=== PATIENT | female | born 1955 | race Caucasian/White ===

== ENCOUNTER 2017-03-13 09:02 | Day surgery (SDC) | payer OTHER ==
[2017-03-13] MEDS ORDERED: LACTATED RINGERS 1,000 ML IV ONE (09:27)
[2017-03-13] MEDS ORDERED: MIDAZOLAM 2 MG/2 ML VIAL IVP ONE (10:56)
[2017-03-13] MEDS ORDERED: fentaNYL 100 MCG/2 ML VIAL IVP ONE (10:56)
[2017-03-13 12:21] VITALS: BP 99/69
== END 2017-03-13 09:03 | disposition home or self-care (01) ==
LOC: SDS 09:02
PROVIDERS: ATTEND Surgery
PROC: 0DJD8ZZ Inspection of Lower Intestinal Tract, Via Natural or Artificial Opening Endoscopic (ICD-10-PCS; principal; 2017-03-13 10:15)
DX: Z12.11 Encounter for screening for malignant neoplasm of colon (principal); Z88.0 Allergy status to penicillin; Z98.1 Arthrodesis status; Z83.3 Family history of diabetes mellitus; Z80.3 Family history of malignant neoplasm of breast; Z88.5 Allergy status to narcotic agent
CPT/HCPCS: 45378; J7120

== ENCOUNTER 2017-05-21 07:12 | Outpatient (CLI) | payer OTHER ==
--- NOTE | 2017-05-23 13:03 | Mammography Report ---
DIGITAL SCREENING MAMMOGRAM: 05/21/2017 CLINICAL INDICATION: A 61-year-old with history of late childbearing, family history of breast cance r for screening. COMPARISON: 04/2016, 03/2015, 02/2014, 09/2011, 01/2010 TECHNIQUE: Routine CC and MLO projections were obtained of the breasts as well as bilateral laterall y exaggerated craniocaudal views. FINDINGS: Scattered fibroglandular tissue is present within the breasts. There are no dominant pako s, suspicious microcalcifications, or secondary signs of malignancy. In comparison to the previous st udies, there are no significant changes. ASSESSMENT: NO MAMMOGRAPHIC EVIDENCE OF MALIGNANCY. NO SIGNIFICANT INTERVAL CHANGES. RECOMMENDATION: Screening mammography is recommended annually. BIRADS category 1 - negative. STANDARD QUALIFYING STATEMENTS 1. This examination was reviewed with the aid of Computed-Aided Detection (CAD). 2. A negative or benign imaging report should not delay biopsy if clinically suspicious findings are present. Consider surgical consultation if warranted. More than 5% of cancers are not identified by i maging. 3. Dense breasts may obscure an underlying neoplasm. JOB #: [id number] EXT JOB #:[id number]
== END 2017-05-21 07:13 | disposition home or self-care (01) ==
LOC: DI 07:12
PROVIDERS: ATTEND Obstetrics & Gynecology
DX: Z12.31 Encounter for screening mammogram for malignant neoplasm of breast (principal); Z80.3 Family history of malignant neoplasm of breast
CPT/HCPCS: 77067

== ENCOUNTER 2018-02-13 08:00 | Outpatient (CLI) | payer BC, OTHER ==
[2018-02-13 18:56] LABS: BASOPHILS % (AUTO) 0.7 %; EOSINOPHILS # (AUTO) 0.2 10^3/uL (0.0-0.7); EOSINOPHILS % (AUTO) 2.3 %; HGB - HEMOGLOBIN 12.6 g/dL (12.0-16.0); LYMPHOCYTES # (AUTO) 1.3 10^3/uL (1.5-3.5); LYMPHOCYTES % (AUTO) 19.3 %; MEAN CORPUSCULAR HEMOGLOBIN 29.8 pg (27.0-31.0); MEAN CORPUSCULAR HGB CONC 32.6 g/dL (32.0-36.0); MEAN CORPUSCULAR VOLUME 91.3 fL (81.0-99.0); MEAN PLATELET VOLUME 9.2 fL (7.9-10.8); MONOCYTES # (AUTO) 0.6 10^3/uL (0.0-1.0); MONOCYTES % (AUTO) 9.2 %; NEUTROPHILS # (AUTO) 4.5 10^3/uL (1.5-6.6); NEUTROPHILS % (AUTO) 68.5 %; PLT - PLATELET COUNT 311 10^3/uL (130-450); RED BLOOD COUNT 4.24 10^6/uL (4.20-5.40); RED CELL DISTRIBUTION WIDTH 13.2 % (12.0-15.0); WHITE BLOOD COUNT 6.6 x10^3/uL (4.8-10.8)
[2018-02-13 19:08] LABS: ALBUMIN 3.1 g/dL (3.2-5.5); ALBUMIN/GLOBULIN RATIO 0.8 (1.0-2.2); ALKALINE PHOSPHATASE 66 IU/L (42-121); ALT ALANINE AMINOTRANSFERASE 14 IU/L (10-60); AST ASPARTATE AMINOTRANSFERASE 20 IU/L (10-42); BILIRUBIN,TOTAL 0.6 mg/dL (0.2-1.0); BUN - BLOOD UREA NITROGEN 13 mg/dL (6-20); CALCIUM 9.3 mg/dL (8.5-10.3); CARBON DIOXIDE - CO2 27 mmol/L (21-32); CHLORIDE 102 mmol/L (101-111); CHOL/HDL RATIO 2.4 (<4.4); CHOLESTEROL 147 mg/dL; CREATININE 0.4 mg/dL (0.4-1.0); GFR - MDRD 163 (>89); GLUCOSE 89 mg/dL (70-100); HDL CHOLESTEROL 61 mg/dL; LDL CHOLESTEROL,CALCULATED 68 mg/dL; LDL/HDL RATIO 1.1 (<4.4); SODIUM 137 mmol/L (135-145); TOTAL PROTEIN 7.1 g/dL (6.7-8.2); VLDL CHOLESTEROL 18 mg/dL
== END 2018-02-13 08:01 | disposition home or self-care (01) ==
LOC: LAB.WCP 08:00
PROVIDERS: ATTEND Family Medicine
DX: Z00.00 Encounter for general adult medical examination without abnormal findings (principal)
CPT/HCPCS: 36415; 80053; 80061; 83721; 84443; 85025

== ENCOUNTER 2018-03-24 13:08 | Outpatient (CLI) | payer BC ==
[2018-03-24] MEDS ORDERED: IOTHALAMATE MEGLUMINE 50 ML VIAL ONE (13:17)
[2018-03-24] MEDS ORDERED: GADOPENTETATE DIMEGLUMINE 5 ML VIAL IVP ONE ×2 (13:17→15:37)
[2018-03-24] MEDS ORDERED: BUFFERED LIDOCAINE 10 ML SYRINGE IU ONE (15:37)
[2018-03-24] MEDS ORDERED: IOTHALAMATE MEGLUMINE 50 ML VIAL IVP ONE (15:37)
--- NOTE | 2018-03-24 16:58 | XRAY Report ---
Procedure Date: 03/24/2018 Accession Number: [id number] / [id number] Procedure: FL - Arthrogram Needle Placement CPT Code: FULL RESULT: EXAM: RIGHT SHOULDER ARTHROGRAPHIC INJECTION WITH FLUOROSCOPIC GUIDANCE EXAM DATE: 03/24/2018 03:32 PM. CLINICAL HISTORY: Rotator cuff tear, right. COMPARISON: None. TECHNIQUE: The risks, benefits, and alternatives of the procedure were discussed with the patient. All questions were answered. Written and verbal consent were obtained. The glenohumeral joint was marked under fluoroscopy and prepped and draped in a sterile manner. Local anesthesia was performed with 1% lidocaine. A 22-gauge needle was then inserted into the glenohumeral joint. 10 mL of a solution containing 25% 1% lidocaine, 25% iodinated contrast, and a 1:200 dilution of gadolinium contrast in sterile saline was then injected. The needle was removed without immediate complication. Other: None. Fluoroscopy Time: 0.4 minutes. Number of Images: 9. FINDINGS: Bones and joints: No fracture or subluxation. Injection: Fluoroscopic images demonstrate needle placement and contrast in the glenohumeral joint. No contrast extravasation outside of the glenohumeral joint. IMPRESSION: Successful fluoroscopically guided arthrographic injection of the shoulder. [facility]
--- NOTE | 2018-03-24 17:11 | MRI Report ---
Procedure Date: 03/24/2018 Accession Number: [id number] / [id number] Procedure: MRI - Arthrogram Shoulder RT CPT Code: FULL RESULT: EXAM: RIGHT SHOULDER MRI ARTHROGRAM WITH CONTRAST EXAM DATE: 03/24/2018 03:51 PM. CLINICAL HISTORY: Rotator cuff tear, right. COMPARISON: None. TECHNIQUE: Multiplanar, multisequence T1-weighted and fluid-sensitive sequences of the shoulder after an arthrographic injection of dilute gadolinium, dictated under a separate exam. Other: None. FINDINGS: Acromioclavicular Region: The acromion is type II. Moderate acromioclavicular joint osteoarthritis. There is a small joint effusion. Inferiorly projecting osteophytes narrow the subacromial space. There is fluid but no contrast in the subacromial bursa. The findings may indicate bursitis. Glenohumeral Region: There is mild thinning of the glenohumeral hyaline cartilage in the posteroinferior quadrant of the labrum. There is underlying subchondral cyst formation. The findings suggest prior osteochondral injury. Bone Marrow: No fracture, marrow edema or bone lesions. Labrum: The labrum is unremarkable. Biceps Tendon: The long head of the biceps tendon and biceps husam are intact. Musculature/Rotator Cuff: There is a high-grade partial-thickness, humeral surface tear of supraspinatus at the musculotendinous junction measuring approximately 13 x 16 mm. Infraspinatus appears unremarkable. There is mild supraspinatus atrophy. There is mild subscapularis tendinosis. Other: The subcutaneous tissues are unremarkable. IMPRESSION: 1. Prior osteochondral injury of the posteroinferior glenoid. 2. No appreciable labral tear. 3. High-grade partial thickness tear of supraspinatus with mild atrophy. 4. Moderate acromioclavicular osteoarthritis. [facility] MUSCULOSKELETAL RADIOLOGY SECTION
== END 2018-03-24 13:09 | disposition home or self-care (01) ==
LOC: DI 13:08
PROVIDERS: ATTEND Family Medicine
DX: M75.101 Unspecified rotator cuff tear or rupture of right shoulder, not specified as traumatic (principal); M19.011 Primary osteoarthritis, right shoulder
CPT/HCPCS: 23350; 73222; 77002; Q9961

== ENCOUNTER 2018-07-17 16:43 | Outpatient (CLI) | payer BC ==
--- NOTE | 2018-07-18 02:07 | Ultrasound Report ---
Reason: LEG EDEMA,LEFT Procedure Date: 07/17/2018 Accession Number: [id number] / [id number] Procedure: US - Duplex Ext Veins Left CPT Code: FULL RESULT: EXAM: LEFT LOWER EXTREMITY VENOUS ULTRASOUND EXAM DATE: 07/17/2018 06:04 PM. CLINICAL HISTORY: LEG EDEMA,LEFT. COMPARISON: None. TECHNIQUE: Real-time sonographic vascular imaging was performed by the music researcher through the lower extremity utilizing both color-flow and Doppler spectral analysis. Multiple access representative static images were saved for review. FINDINGS: Common Femoral Vein (CFV): Normal. CFV-GSV Junction: Normal. Profunda Femoral Vein (PFV): Normal. Femoral Vein (FV) Prox: Normal. Femoral Vein (FV) Mid: Normal. Femoral Vein (FV) Dist: Normal. Popliteal Vein: Normal. Posterior Tibial Veins: Normal. Peroneal Veins: Normal. Contralateral Side CFV: Normal. Other: Soft tissue edema is noted in the left leg. No collections or adenopathy. Palpable lump in the left leg corresponds to a nonvascular 2.1 x 1.2 x 1.5 cm soft-tissue mass with echogenic characteristics similar to the adjacent fat. IMPRESSION: 1. Palpable finding in the left leg corresponds to a 2.1 cm avascular mass with echogenic characteristics similar to the adjacent fat. Findings are most likely due to a lipoma. If lesion increases in size or become painful, recommend MRI with and without contrast. 2. Soft tissue edema noted. No collections or adenopathy. 3. No evidence for deep venous thrombosis. [facility]
== END 2018-07-17 16:44 | disposition home or self-care (01) ==
LOC: DI 16:43
PROVIDERS: ATTEND Family Medicine
DX: R60.0 Localized edema (principal); R22.42 Localized swelling, mass and lump, left lower limb

== ENCOUNTER 2018-07-22 13:11 | Outpatient (CLI) | payer BC ==
--- NOTE | 2018-07-23 09:18 | Mammography Report ---
Reason: SCREENING MAMMO Procedure Date: 07/22/2018 Accession Number: [id number] / [id number] Procedure: GON[facility] - Screening Mammo w/Frederic CPT Code: FULL RESULT: EXAM: Screening Mammo w/Frederic DATE: 07/22/2018 1:34 PM CLINICAL HISTORY: Screening encounter. History of late childbearing and family history of breast cancer in the mother at age 70. TECHNIQUE: Bilateral CC and MLO views were obtained. COMPARISON: 05/21/2017 through 03/22/2015. FINDINGS: The breasts demonstrate scattered fibroglandular densities bilaterally. No suspicious masses, clustered microcalcifications, or regions of architectural distortion are identified. IMPRESSION: Negative examination RECOMMENDATION: Routine annual screening unless otherwise clinically indicated. BIRADS CATEGORY 1: Negative STANDARD QUALIFYING STATEMENTS: 1. This examination was not reviewed with the aid of Computer-Aided Detection (CAD). 2. A negative or benign imaging report should not preclude biopsy if clinically suspicious findings are present. 3. Dense breasts may obscure an underlying neoplasm. 4. This examination was reviewed with the aid of 3D breast imaging (tomosynthesis).
== END 2018-07-22 13:12 | disposition home or self-care (01) ==
LOC: DI 13:11
DX: Z12.31 Encounter for screening mammogram for malignant neoplasm of breast (principal); Z80.3 Family history of malignant neoplasm of breast
CPT/HCPCS: 77063; 77067

== ENCOUNTER 2019-09-17 08:00 | Outpatient (CLI) | payer BC ==
[2019-09-17 12:42] LABS: BASOPHILS % (AUTO) 0.6 %; EOSINOPHILS # (AUTO) 0.1 10^3/uL (0.0-0.7); EOSINOPHILS % (AUTO) 2.5 %; HGB - HEMOGLOBIN 13.4 g/dL (12.0-16.0); LYMPHOCYTES # (AUTO) 1.8 10^3/uL (1.5-3.5); LYMPHOCYTES % (AUTO) 38.6 %; MEAN CORPUSCULAR HEMOGLOBIN 28.8 pg (27.0-31.0); MEAN CORPUSCULAR HGB CONC 31.3 g/dL (32.0-36.0); MONOCYTES # (AUTO) 0.4 10^3/uL (0.0-1.0); NEUTROPHILS # (AUTO) 2.4 10^3/uL (1.5-6.6); NEUTROPHILS % (AUTO) 49.9 %; PLT - PLATELET COUNT 235 10^3/uL (130-450); RED BLOOD COUNT 4.65 10^6/uL (4.20-5.40); RED CELL DISTRIBUTION WIDTH 13.5 % (12.0-15.0); WHITE BLOOD COUNT 4.7 x10^3/uL (4.8-10.8)
[2019-09-17 13:21] LABS: ALBUMIN 3.7 g/dL (3.2-5.5); ALBUMIN/GLOBULIN RATIO 1.2 (1.0-2.2); ALKALINE PHOSPHATASE 67 IU/L (42-121); ALT ALANINE AMINOTRANSFERASE 19 IU/L (10-60); AST ASPARTATE AMINOTRANSFERASE 22 IU/L (10-42); BUN - BLOOD UREA NITROGEN 15 mg/dL (6-20); CALCIUM 8.8 mg/dL (8.5-10.3); CARBON DIOXIDE - CO2 26 mmol/L (21-32); CHLORIDE 106 mmol/L (101-111); CHOL/HDL RATIO 2.7 (<4.4); CHOLESTEROL 224 mg/dL; CREATININE 0.7 mg/dL (0.4-1.0); GFR - MDRD 85 (>89); GLUCOSE 95 mg/dL (70-100); HDL CHOLESTEROL 84 mg/dL; LDL CHOLESTEROL,CALCULATED 126 mg/dL; LDL/HDL RATIO 1.5 (<4.4); SODIUM 139 mmol/L (135-145); TOTAL PROTEIN 6.7 g/dL (6.7-8.2); VLDL CHOLESTEROL 14 mg/dL
== END 2019-09-17 23:59 | disposition home or self-care (01) ==
LOC: LAB.WCP 08:00
PROVIDERS: ATTEND Family Medicine
DX: Z00.00 Encounter for general adult medical examination without abnormal findings (principal)
CPT/HCPCS: 36415; 80053; 80061; 83721; 84443; 85025

== ENCOUNTER 2019-10-20 14:43 | Outpatient (CLI) | payer BC ==
--- NOTE | 2019-10-21 09:08 | Mammography Report ---
Reason: ROUTINE MAMMO Procedure Date: 10/20/2019 Accession Number: [id number] / [id number] Procedure: GON[facility]ALEZ - Screening Mammo w/Frederic CPT Code: Final Report FULL RESULT: EXAM: Screening Mammo w/Frederic DATE: 10/20/2019 3:15 PM CLINICAL HISTORY: Screening encounter. History of late childbearing. Family history of breast cancer in the mother at the age of 72. TECHNIQUE: (B) - Bilateral CC and MLO views were obtained. COMPARISON: 07/22/2018 through 02/06/2010. PARENCHYMAL PATTERN: (A) - The breast(s) demonstrate(s) scattered fibroglandular densities. FINDINGS: There are no suspicious masses, calcifications, or areas of distortion. IMPRESSION: Negative examination. BI-RADS category 1. RECOMMENDATION: (ANNUAL) - Recommend routine annual screening mammography. BI-RADS CATEGORY: (1) - Negative. STANDARD QUALIFYING STATEMENTS: 1. This examination was not reviewed with the aid of Computer-Aided Detection (CAD). 2. A negative or benign imaging report should not preclude biopsy if clinically suspicious findings are present. 3. Dense breasts may obscure an underlying neoplasm. 4. This examination was reviewed with the aid of 3D breast imaging (tomosynthesis).
== END 2019-10-20 14:44 | disposition home or self-care (01) ==
LOC: DI 14:43
DX: Z12.31 Encounter for screening mammogram for malignant neoplasm of breast (principal); Z80.3 Family history of malignant neoplasm of breast
CPT/HCPCS: 77063; 77067

== ENCOUNTER 2021-05-15 16:47 | Outpatient (CLI) | payer BC | END 2021-05-15 16:48 | disposition critical access hospital (66) | LOC: EMS 16:47 | DX: I48.91 Unspecified atrial fibrillation (principal) | CPT/HCPCS: A0425; A0427 ==

== ENCOUNTER 2021-05-15 17:12 | Emergency (ER) | payer BC ==
[2021-05-15] MEDS ORDERED: diltiaZEM 30 MG TABLET PO STA (17:37)
--- NOTE | 2021-05-15 17:41 | ED Physician Documentation ---
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 They recommend she followed up with her primary care provider. The grey stock recorder office called her primary care provider's office to give them a verbal report and inform of need for follow-up. The primary care provider's office called to the patient while she was driving through [place] and told her to bone char puller immediately and go to the closest ER. Patient stated that she felt fine at that time and was not having any symptoms. Therefore they told her she could go to the walk-in clinic in [place]. When she went to the walk-in clinic they immediately called 911 and sent the patient here. The patient is currently asymptomatic. No shortness of breath. No palpitations. No chest pain. Does not have a history of A. fib. Nothing makes it better or worse. Is on no medications at home. No recent travel or surgery. Review of Systems Ten Systems: 10 systems reviewed and negative Constitutional: denies: Fever, Chills Nose: denies: Rhinorrhea / runny nose, Congestion Cardiac: denies: Chest pain / pressure, Palpitations Respiratory: denies: Dyspnea, Cough, Wheezing GI: denies: Vomiting, Diarrhea Skin: denies: Rash Musculoskeletal: denies: Neck pain, Back pain Neurologic: denies: Headache PD PAST MEDICAL HISTORY - Past Medical History Past Medical History: Yes Cardiovascular: None Respiratory: None Neuro: None Endocrine/Autoimmune: None GI: None MANAGER BAKERY: None : None HEENT: Chronic vision loss Psych: None Musculoskeletal: None Derm: None - Past Surgical History Past Surgical History: Yes General: Colonoscopy Ortho: Spine surgery /MANAGER BAKERY: section, Tubal ligation - Present Medications Home Medications: Ambulatory Orders Medication Instructions Recorded Confirmed Estradiol [Estring] 1 03/13/17 Aspirin EC [Ecotrin] 325 mg PO DAILY #30 tablet 05/15/21 diltiaZEM CD [Cardizem Cd] 120 mg PO DAILY #30 cap 05/15/21 - Allergies Allergies/Adverse Reactions: Allergies Allergy/AdvReac Type Severity Reaction Status Date / Time Penicillins Allergy Anaphylaxis Verified 05/15/21 17:19 oxycodone AdvReac Nausea Verified 05/15/21 17:19 - Social History Does the pt smoke?: No Smoking Status: Never smoker Does the pt drink ETOH?: No Does the pt have substance abuse?: No - Immunizations Immunizations are current?: Yes PD ED PE NORMAL - Vitals Vital signs reviewed: Yes - General General: Alert and oriented X 3, No acute distress, Well developed/nourished - HEENT HEENT: PERRL, Moist mucous membranes - Neck Neck: Supple, no meningeal sign - Cardiac Cardiac: Strong equal pulses, Other (irregularly irregular) - Respiratory Respiratory: No respiratory distress, Clear bilaterally - Abdomen Abdomen: Soft, Non tender, Non distended - Derm Derm: Warm and dry - Neuro Neuro: Alert and oriented X 3 - Psych Psych: Normal mood, Normal affect Results - Vitals Vitals: Vital Signs - 24 hr 05/15/21 05/15/21 05/15/21 17:19 17:55 19:04 Temperature 37.3 C Heart Rate 100 99 93 Respiratory 16 18 15 Rate Blood Pressure 140/100 H 129/102 H 116/94 H O2 Saturation 99 100 97 05/15/21 20:04 Temperature Heart Rate 102 H Respiratory 16 Rate Blood Pressure 117/94 H O2 Saturation 97 Oxygen O2 Source Room air - EKG (time done) 1717 Rate: Rate (enter#) (133) Rhythm: Atrial fibrillation (w RVR) [place]: Normal QRS: Normal Ischemia: Normal ST segments - Labs Labs: Laboratory Tests 05/15/21 05/15/21 05/15/21 17:46 17:46 17:46 WBC 5.2 RBC 4.80 Hgb 14.5 Hct 43.1 MCV 89.8 MCH 30.2 MCHC 33.6 RDW 13.1 Plt Count 213 MPV 10.2 Neut # (Auto) 2.7 Lymph # (Auto) 2.0 [place] # (Auto) 0.5 Eos # (Auto) 0.1 Baso # (Auto) 0.0 Absolute Nucleated RBC 0.00 Nucleated RBC % 0.0 Sodium 138 Potassium 3.5 Chloride 102 Carbon Dioxide 25 Anion Gap 11.0 BUN 20 Creatinine 0.6 Estimated GFR (MDRD) 101 Glucose 92 Calcium 9.3 Total Bilirubin 1.5 H AST 22 ALT 18 Alkaline Phosphatase 61 Troponin I High Sens 4.8 Total Protein 6.9 Albumin 3.9 Globulin 3.0 Albumin/Globulin Ratio 1.3 Lipase 25 TSH Free T4 05/15/21 17:46 WBC RBC Hgb Hct MCV MCH MCHC RDW Plt Count MPV Neut # (Auto) Lymph # (Auto) [place] # (Auto) Eos # (Auto) Baso # (Auto) Absolute Nucleated RBC Nucleated RBC % Sodium Potassium Chloride Carbon Dioxide Anion Gap BUN Creatinine Estimated GFR (MDRD) Glucose Calcium Total Bilirubin AST ALT Alkaline Phosphatase Troponin I High Sens Total Protein Albumin Globulin Albumin/Globulin Ratio Lipase TSH 2.01 Free T4 0.94 - Rads (name of study) cxr Radiology: Final report received, EMP read contemporaneously, See rad report (No acute cardiopulmonary abnormality. ) PD MEDICAL DECISION MAKING - ED course Complexity details: reviewed results, re-evaluated patient, considered differential, d/w patient ED course: Patient with new onset atrial fibrillation. Her chads vasc score is 1. We [address] on aspirin for home. No significant lab abnormalities. No acute findings on x-ray. Rate controlled with Cardizem. We will have her follow-up with her doctor for further care including echocardiogram and will likely Holter monitor. Patient counseled regarding signs and symptoms for which I believe and urgent re-evaluation would be necessary. Patient with good understanding of and agreement to plan and is comfortable going home at this time This document was made in part using voice recognition software. While efforts are made to proofread this document, sound alike and grammatical errors may occur. Departure - Departure Disposition: 01 Home, Self Care Clinical Impression: Atrial fibrillation Qualifiers: Atrial fibrillation type: unspecified Qualified Code(s): I48.91 - Unspecified atrial fibrillation Condition: Good Instructions: ED Afib Follow-Up: Stephen Johnson DO [Primary Care Provider] - Prescriptions: diltiaZEM CD [Cardizem Cd] 120 mg PO DAILY #30 cap Aspirin EC [Ecotrin] 325 mg PO DAILY #30 tablet Comments: Prescriptions were sent to [facility] in [place]. Please follow-up with your doctor for further care. They will likely want to do an echocardiogram and a heart monitor to determine if you are in atrial fibrillation all the time or if you go in and out of this heart rhythm. Return if you worsen. Discharge Date/Time: 05/15/21 20:06
[2021-05-15 17:52] LABS: BASOPHILS % (AUTO) 0.6 %; EOSINOPHILS # (AUTO) 0.1 10^3/uL (0.0-0.7); EOSINOPHILS % (AUTO) 1.5 %; HCT - HEMATOCRIT 43.1 % (37.0-47.0); HGB - HEMOGLOBIN 14.5 g/dL (12.0-16.0); LYMPHOCYTES % (AUTO) 37.9 %; MEAN CORPUSCULAR HEMOGLOBIN 30.2 pg (27.0-31.0); MEAN CORPUSCULAR HGB CONC 33.6 g/dL (32.0-36.0); MEAN CORPUSCULAR VOLUME 89.8 fL (81.0-99.0); MEAN PLATELET VOLUME 10.2 fL (7.9-10.8); MONOCYTES # (AUTO) 0.5 10^3/uL (0.0-1.0); NEUTROPHILS # (AUTO) 2.7 10^3/uL (1.5-6.6); NEUTROPHILS % (AUTO) 50.8 %; PLT - PLATELET COUNT 213 10^3/uL (130-450); RED CELL DISTRIBUTION WIDTH 13.1 % (12.0-15.0); WHITE BLOOD COUNT 5.2 x10^3/uL (4.8-10.8)
[2021-05-15 18:06] LABS: ALBUMIN 3.9 g/dL (3.2-5.5); ALBUMIN/GLOBULIN RATIO 1.3 (1.0-2.2); BILIRUBIN,TOTAL 1.5 mg/dL (0.2-1.0); CALCIUM 9.3 mg/dL (8.5-10.3); CREATININE 0.6 mg/dL (0.4-1.0); POTASSIUM 3.5 mmol/L (3.5-5.0); TOTAL PROTEIN 6.9 g/dL (6.7-8.2)
--- NOTE | 2021-05-15 18:19 | XRAY Report ---
PROCEDURE: Chest 1 View X-Ray INDICATIONS: Chest Pain TECHNIQUE: One view of the chest was acquired. COMPARISON: None. FINDINGS: Surgical changes and devices: None. Lungs and pleura: No pleural effusions or pneumothorax. Lungs are clear. Mediastinum: Mediastinal contours appear normal. Heart size is normal. Bones and chest wall: No suspicious bony lesions. Overlying soft tissues appear unremarkable. IMPRESSION: No acute cardiopulmonary abnormality. Reviewed by: Teo Arreaga MD on 05/15/2021 6:17 PM PDT Approved by: Teo Arreaga MD on 05/15/2021 6:17 PM PDT Station ID: [id number]
[2021-05-15 18:21] LABS: THYROID STIMULATING HORMONE 2.01 uIU/mL (0.34-5.60)
[2021-05-15 18:23] LABS: FREE T4 (FREE THYROXINE) 0.94 ng/dL (0.58-1.64)
[2021-05-15 20:06] VITALS: BP 117/94
== END 2021-05-15 20:06 | disposition home or self-care (01) ==
LOC: EDUNIT# → ED 17:12
DX: I48.91 Unspecified atrial fibrillation (principal)
CPT/HCPCS: 36415; 71045; 80053; 83690; 84439; 84443; 84484; 85025; 93005; 99284; A9270

== ENCOUNTER 2021-07-24 16:59 | Emergency (ER) | payer BC ==
--- NOTE | 2021-07-24 18:16 | ED Physician Documentation ---
History of Present Illness - Stated complaint Stated Complaint: ENLARGED LT PUPIL - Chief complaint Chief Complaint: Cardiac - History obtained from History obtained from: Patient - History of Present Illness Timing: Today - Additonal information Additional information: 65-year-old female looked herself in the mirror and found that her left pupil was much larger than her right pupil. When she looked this up she became concerned about the possibility of stroke knowing that she has had a recent bout with A. fib. She has come to the emergency department. She does not have any other specific symptoms, she does not have blurring of her vision or headache. She has not had a head injury. She does not have numbness tingling or weakness. She does state that she used some clear eye and when she used this she used only in the left eye. She uses some drops for a wetting and or clearing redness. These drops contain naphazoline known to cause midriasis. Today she used this only in the left eye. Review of Systems Constitutional: denies: Fever, Chills, Myalgias Eyes: reports: Other (left pupil > R). denies: Loss of vision, Decreased vision, Photophobia, Discharge, Irritation Ears: denies: Ear pain Nose: denies: Rhinorrhea / runny nose, Congestion Throat: denies: Sore throat Cardiac: denies: Chest pain / pressure, Palpitations Respiratory: denies: Dyspnea, Cough GI: denies: Abdominal Pain, Nausea, Vomiting, Constipation, Diarrhea : denies: Dysuria, Frequency Skin: denies: Rash Musculoskeletal: denies: Neck pain, Back pain, Extremity pain Neurologic: denies: Generalized weakness, Focal weakness, Numbness, Difficulty speaking, Syncope, Seizure, Confused, Altered mental status, Headache, Head injury, LOC PD PAST MEDICAL HISTORY - Past Medical History Cardiovascular: None Respiratory: None Neuro: None Endocrine/Autoimmune: None GI: None BILLING REP: None : None HEENT: Chronic vision loss Psych: None Musculoskeletal: None Derm: None - Past Surgical History Past Surgical History: Yes General: Colonoscopy Ortho: Spine surgery /BILLING REP: section, Tubal ligation - Present Medications Home Medications: Ambulatory Orders Medication Instructions Recorded Confirmed Estradiol [Estring] 1 03/13/17 Aspirin EC [Ecotrin] 325 mg PO DAILY #30 tablet 05/15/21 diltiaZEM CD [Cardizem Cd] 120 mg PO DAILY #30 cap 05/15/21 - Allergies Allergies/Adverse Reactions: Allergies Allergy/AdvReac Type Severity Reaction Status Date / Time Penicillins Allergy Anaphylaxis Verified 07/24/21 17:03 oxycodone AdvReac Nausea Verified 07/24/21 17:03 - Social History Does the pt smoke?: No Smoking Status: Never smoker Does the pt drink ETOH?: No Does the pt have substance abuse?: No - Immunizations Immunizations are current?: Yes PD ED PE NORMAL - Vitals Vital signs reviewed: Yes (hypertensive ) - General General: Alert and oriented X 3, No acute distress, Well developed/nourished - HEENT HEENT: Atraumatic, EOMI, Other (The left pupil is larger than the right ) - Neck Neck: Supple, no meningeal sign, No bony TTP, No JVD, No bruit - Cardiac Cardiac: RRR, No murmur - Respiratory Respiratory: No respiratory distress, Clear bilaterally - Abdomen Abdomen: Soft, Non tender - Back Back: No CVA TTP, No spinal TTP - Derm Derm: Normal color, Warm and dry, No rash - Extremities Extremities: No deformity, No edema - Neuro Neuro: Alert and oriented X 3, 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, No motor deficit, No sensory deficit, Normal speech Eye Opening: Spontaneous Motor: Obeys Commands Verbal: Oriented GCS Score: 15 - Psych Psych: Normal mood, Normal affect Results - Vitals Vitals: Vital Signs - 24 hr 07/24/21 07/24/21 07/24/21 17:03 17:08 18:25 Temperature 36.4 C L 36.5 C 36.5 C Heart Rate 78 78 63 Respiratory 18 18 16 Rate Blood Pressure 173/107 H 172/107 H 139/87 H O2 Saturation 99 99 100 Oxygen O2 Source Room air - EKG (time done) 1712 Rate: Rate (enter#) (68) Rhythm: NSR [place]: LAD Compare to prior EKG: Changed from prior EKG (SPT 05-15-21 rate has decreased and the rhythm has converted to sinus. ) Computer interpretation: Agree with computer PD MEDICAL DECISION MAKING - ED course Complexity details: reviewed old records, reviewed results, re-evaluated patient, considered differential, d/w patient ED course: 65-year-old female with a history of atrial fibrillation intermittent has placed some drops into her eye that have caused her to have a dilated left pupil. She became concerned about the possibility of stroke after googling her symptoms and she is come to the emergency department. She has no other specific symptoms and the medication she put into her right does cause mydriasis. She is relieved to find this and relieved to find she was in a sinus rhythm with a normal rate. She will follow up as needed. Departure - Departure Disposition: 01 Home, Self Care Clinical Impression: Mydriasis Condition: Stable Instructions: Naphazoline Pheniramine eye solution Follow-Up: Stephen Johnson DO [Primary Care Provider] - Comments: Radha, today it looks like the medicine in the clear eyes the Naphazoline is the agent causing the mydriasis or the dilation of your pupil. This will wear off and will cause no specific effect. There is no evidence today of stroke. Discharge Date/Time: 07/24/21 18:25
[2021-07-24 18:27] VITALS: BP 139/87
== END 2021-07-24 18:25 | disposition home or self-care (01) ==
LOC: ED 16:59
DX: H57.04 Mydriasis (principal); Z86.79 Personal history of other diseases of the circulatory system; Z79.82 Long term (current) use of aspirin
CPT/HCPCS: 36415; 93005; 99281; 99283

== ENCOUNTER → 2022-02-10 | Outpatient (CLI) | payer BC | END | disposition short-term general hospital (02) | LOC: EMS 09:54 | DX: R55 Syncope and collapse (principal); R42 Dizziness and giddiness; I95.9 Hypotension, unspecified; I48.91 Unspecified atrial fibrillation; I48.92 Unspecified atrial flutter | CPT/HCPCS: A0425; A0427 ==

== ENCOUNTER 2023-04-29 08:57 | Outpatient (CLI) | payer BC ==
--- NOTE | 2023-04-29 10:07 | Sleep Patient Instructions ---
Sleep Center Visit Summary - Patient Visit Information Reason for Visit: Initial consult for evaluation of sleep disordered breathing and other sleep issues. - Patient Instructions Instructions Attached: Sleep Study Home Monitor, Sleep Clinic Visit, Sleep Study Additional Instructions: You will be completing a sleep study, either an in-lab polysomnography (PSG) or home sleep study (HST). You will follow-up in the sleep care office after the sleep study is completed to hear the results and talk about therapy, if needed. You will be called by our office staff to schedule this appointment, but you may contact us with any questions. - Clinic Information Contact: [facility] [address] [place] [address] [email or web address] T: [phone]
--- NOTE | 2023-04-29 10:15 | SLEEP CARE CONSULTATION ---
Information from patient questionnaire entered by Adeola Thompson. I have reviewed and concur with the information entered by Adeola Thompson. This document represents the service I personally performed and the decisions made by me, Laura Campos ARNP. History of Present Illness Service Date and Time: 04/29/2023 0857 Reason for Visit: New patient Chief Complaint: reports: Unrefreshed sleep, Observed pauses in breathing, Other (heart) Date of Onset: 2 years Usual bedtime: 9-10 PM Time it takes to fall asleep: quickly, ? 30 mins Snores at night: Yes (per ) Observed to quit breathing while asleep: Yes Sleeps alone due to snoring: No Number of times waking at night: once Reasons for waking at night: reports: Other (hot flush). denies: Choking, Snoring, Gasping for air Toss, Turn, or Twitch while sleeping: No Recalls having dreams: No Usually gets out of bed at: 6:30-7:30 AM Feels refreshed in the morning: No Morning headache: No Sleepy or fatigued during the day: Yes (sometimes) Ever fallen asleep while driving: No Takes day naps: Yes (rarely) Dreams during day naps: No Prior sleep studies: No Additional HPI information: I had the pleasure of seeing AICHA TURCIOS today regarding the possibility of her having a sleep disorder. Her current complaints are observed pauses in breathing and unrefreshed sleep. Patient states she saw her primary doctor who encouraged her to have a sleep study. She was diagnosed with atrial fibrillation a few years ago and had an ablation in 2020. She had a Watchman placed and is on Plavix. She states in the two ambulance rides that she had to the hospital when dealing with atrial fibrillation, she was asked if she has sleep apnea by the tape recorder mechanic. Her , who was with her on the second ride, told them that yes she did snore and has had pauses in breathing. She has also had a slight gasp with the pauses occasionally. She states she does not normally wake up feeling refreshed. She denies excessive daytime sleepiness, drowsy driving or problems with concentration during the day. She states she is a very busy lady. - Parasomnia Symptoms Ever been unable to move upon waking from sleep: No Walks in sleep: No Talks in sleep: No Ever acted out dreams in sleep: No Ever felt weak in the knees when startled or emotional: No Bothered by creepy, crawly, restless sensations in legs: No Problems with memory or concentration: No Subjective Initial [place] Sleepiness Scale score: 8 (04/29/2023) Past Medical History Past Medical History: reports: Arrythmia (Atrial fibrillation) Social History The patient's occupation is a RE. Patient is and lives in [place]. Have you smoked in the past 12 months: No Cigarettes per day (20/pack): 2 (socially) Years of smokin (when graduated from college) Quit date: 1990 Smoking Pack Years: 0.2 Alcohol use: Yes Alcohol amount and frequency: 1-2 drinks, couple of times week Caffeine use: Yes Caffeine amount and frequency: 1 drink in the morning Family History Family history of sleep disordered breathing: No Allergies and Home Medications Known drug allergies: Yes (as listed) Drug allergies reviewed: Yes Home medication list reviewed: Yes Allergy and home medication list: Allergies Penicillins Allergy (Verified 04/28/23 08:28) Anaphylaxis oxycodone Adverse Reaction (Verified 04/28/23 08:28) Nausea Home Medications Medication Instructions Recorded Confirmed Last Taken Type estradioL [Estring] 1 03/13/17 Unknown History Aspirin EC [Ecotrin] 325 mg PO DAILY #30 tablet 05/15/21 Unknown Rx Clopidogrel ORAL DAILY 04/29/23 Unknown History Review of Systems Cardiovascular: reports: irregular heart rate or pulse. denies: high blood pressure Respiratory: denies: shortness of breath Gastrointestinal: denies: heartburn Neurological: denies: headaches Psychiatric: denies: anxiety, depression Ear/Nose/Throat: reports: tonsillectomy Endocrine: denies: thyroid disease Immunologic: denies: allergies to food or environment Physical Exam Vital signs obtained and entered by: Laura Sahu NP Blood Pressure: 109/60 Cuff size: regular (left) Heart Rate: 58 O2 Saturation: 100 Height: 5 ft 7 in Weight: 148 lb 3.2 oz Body Mass Index: 23.2 BMI Classification: Normal Neck circumference: 14.5 (inches) Mouth and throat: narrow oropharynx Soft palate: long Hard palate: normal Uvula: normal Uvula visualization: 25% Mallampati Class III Tongue: normal in size Tonsils: absent bilaterally Neck: normal w/o lymphadenopathy or thyromegaly Heart: regular rate and rhythm Lungs: clear bilaterally Impression and Plan 1. Suspected Obstructive Sleep Apnea-Hypopnea Syndrome, as suggested by a history of irregular snoring, observed cessation of breath while asleep and unrefreshed sleep. She has a diagnosis of atrial fibrillation. Narrow oropharynx and obesity are common predisposing factors for obstructive sleep apnea- hypopnea syndrome. I recommend proceeding to polysomnography to confirm the diagnosis and to assess severity. If the patient has significant sleep disordered breathing, a manual CPAP titration study will also be performed to find the optimal treatment pressure. I informed the patient of what the sleep studies involve and after some discussion, obtained agreement to proceed. The pathophysiology of obstructive sleep apnea-hypopnea syndrome was discussed with the patient and health risks of cardiovascular and cerebrovascular disease if not treated. Risks of drowsy driving discussed in detail and patient advised to avoid long distance driving and to well puller at the first sign of drowsiness. Patient agreed to plan. * Schedule polysomnography. * Avoid long distance driving or driving when feeling sleepy. * Avoid alcohol, sedative and muscle relaxant around bedtime. * Review instructions provided by trained office staff on how to prepare for the sleep study. * Return for follow-up after sleep study completed. Visit Type: In Office Time Spent with Patient (minutes): 32 Provider Statement: I spent 100% of the Face to Face Visit with the patient with greater than 50% spent counseling the patient and coordination of care.
[2023-04-29 10:18] VITALS: BP 109/60; O2SAT 100
== END 2023-04-29 08:58 | disposition home or self-care (01) ==
LOC: SC 08:57
PROVIDERS: ATTEND Nurse Practitioner Family
DX: R06.83 Snoring (principal); G47.8 Other sleep disorders; R06.81 Apnea, not elsewhere classified; I48.91 Unspecified atrial fibrillation
CPT/HCPCS: 99203; 99212

== ENCOUNTER 2023-05-21 07:58 | Outpatient (CLI) | payer BC | END 2023-05-21 07:59 | disposition home or self-care (01) | LOC: SC 07:58 | PROVIDERS: ATTEND Nurse Practitioner Family | DX: G47.8 Other sleep disorders (principal); R06.81 Apnea, not elsewhere classified; R06.83 Snoring; I49.9 Cardiac arrhythmia, unspecified | CPT/HCPCS: 95806 ==

== ENCOUNTER 2023-06-13 10:03 | Outpatient (CLI) | payer BC ==
--- NOTE | 2023-06-13 10:02 | SLEEP CARE CONSULTATION ---
Information from patient questionnaire entered by Adeola Thompson. I have reviewed and concur with the information entered by Adeola Thompson. This document represents the service I personally performed and the decisions made by , Laura Campos ARNP. History of Present Illness Service Date and Time: 06/13/2023 1000 Initial [place] Sleepiness Scale score: 8 (04/29/2023) Current [place] Sleepiness Scale score: 2 (06/13/23) Additional HPI information: AICHA TURCIOS returns in a video visit for follow up and results of the recently performed home sleep study. The patient was informed of the following findings: No significant sleep disord ered breathing with an average AHI of 2.6 and hien oxygen saturation of 90%. However, she had elevated supine AHI at 6.7. She has a history of atrial fibrillation. I explained the pathophysiology behind obstructive sleep apnea. Patient does not have sleep apnea and was advised how weight gain could increase the risk of developing sleep apnea in the future. Patient does not have significant sleep disordered breathing but has elevated AHI in supine position so advised positional therapy. Methods to achieve positional management therapy were discussed; such as, positioning with pillows, wearing a T-shirt with tennis balls sewn into the back, or commercially available products. Patient has moderate snoring. Snoring can also be treated with an oral appliance from a dentist. Advised to check insurance coverage. In addition, an ENT evaluation can be do to see if other treatment is indicated. Patient counseled not drink alcohol less than 4 hours before bedtime as it can increase snoring an d apnea. Patient was cautioned about risks of drowsy driving until sleepiness symptoms resolve. Patient denies drowsy driving. Sleep Study - Results Type of Sleep Study: Home sleep study (COMPLETED 05/21/23) Prior sleep studies: No Polysomnography/Home Sleep Study results: Physician Impression: The quality of the study is good. The length of the study is adequate (> 240 minutes). Please also see the tabulated and graphic data. 1. No significant sleep disordered breathing, with an AHI of 2.6/hr and hien SaO2 of 90%. During the study, the patient had 17 apneas (17 obstructive, 0 central, 0 mixed) and 7 hypopneas. The longest episode lasted 70.0 seconds. The few respiratory events occurred almost exclusively during supine sleep (supine AHI was 6.7 and non-supine, 0.64). Allergies and Home Medications Known drug allergies: Yes (as listed) Drug allergies reviewed: Yes Home medication list reviewed: Yes (no changes) Allergy and home medication list: Allergies Penicillins Allergy (Verified 06/12/23 12:33) Anaphylaxis oxycodone Adverse Reaction (Verified 06/12/23 12:33) Nausea Review of Systems Review of systems same as previous: Yes (NO CHANGE) Physical Exam Vital signs obtained and entered by: ADEOLA Martinez MA Height: 5 ft 7 in (PER PT) Weight: 143 lb (PER PT) Body Mass Index: 22.4 BMI Classification: Normal Impression and Plan 1. Snoring but no significant sleep disordered breathing. However, she has an elevated supine AHI and should avoid sleeping supine. Methods for avoiding supine sleep discussed. Patient advised to maintain a healthy weight. An oral appliance can also be used for snoring. This would require a dental consultation. Patient cautioned not to use other online appliances as can cause bite issues. Patient is advised to check if insurance will cover. An ENT consult can also be helpful to determine if any other treatment is an option. * Avoid sleeping supine * Maintain healthy weight * Avoid alcohol consumption near bedtime * Return as needed for follow up. Counseling Topics: Sleeping position Follow up with Sleep Care in: as needed Visit Type: Telehealth Video Video Type: Tania Patient Location: Home Location of Provider: Office Patient agrees and consents to this telehealth visit type: Yes Patient agrees to have their insurance billed: Yes Time Spent with Patient (minutes): 11 Provider Statement: I spent 100% of the Telehealth Video Call with the patient with greater than 50% spent counseling the patient and coordination of care.
== END 2023-06-13 10:04 | disposition home or self-care (01) ==
LOC: SC 10:03
PROVIDERS: ATTEND Nurse Practitioner Family
DX: R06.83 Snoring (principal)